=== PATIENT | female | born 1935 | race African-American/Black ===

== ENCOUNTER 2021-03-24 15:19 | Outpatient (CLI) | payer MEDICARE | END 2021-03-24 15:20 | disposition home or self-care (01) | LOC: CSHCT 15:19 | PROVIDERS: ATTEND Neurological Surgery | DX: S06.6X9D Traumatic subarachnoid hemorrhage with loss of consciousness of unspecified duration, subsequent encounter (principal) | CPT/HCPCS: 70450 ==

== ENCOUNTER 2021-10-02 17:39 | Observation (INO) | payer MEDICARE, OTHER ==
[2021-10-02 18:42] LABS: #Eosinphils 0.3 10x3/uL (0.0-0.5); #Monocytes 0.4 10x3/uL (0.0-1.1); %Basophils 0.5 % (0.0-2.0); %Eosinophils 6.2 % (0.0-6.0); Hemoglobin 10.2 g/dL (12.0-15.5); Mean Corpuscular HGB CONC 32.6 g/dL (32.0-36.0); Mean Corpuscular Volume 88.9 fl (81.6-98.3); Mean Platelet Volume 11.7 fl (7.4-10.4); Platelet Count 122 10x3/uL (150-450); RBC Distribution Width 14.3 % (11.5-14.5); Red Blood Cell (RBC) Count 3.52 10x6/uL (3.90-5.03); White Blood Cell (WBC) Count 4.2 10x3/uL (3.5-10.5)
[2021-10-02 18:44] LABS: %Neutrophils 48.3 % (40.0-75.0)
[2021-10-02 18:49] LABS: ALT (SGPT) 10 U/L (8-55); AST (SGOT) 24 U/L (5-34); Albumin 4.2 g/dL (3.4-4.8); Alkaline Phosphatase 44 U/L (40-110); Anion Gap 17 mmol/L (10-20); BUN (Urea Nitrogen) 49 mg/dL (9.8-20.1); Bilirubin, Total 0.3 mg/dL (0.2-1.2); Calc. Creatinine Clearance 0 mL/min (70-130); Calcium 8.9 mg/dL (7.8-10.44); Carbon Dioxide 25 mmol/L (23-31); Chloride 103 mmol/L (98-107); Globulin 3.1 g/dL (2.4-3.5); Glucose 131 mg/dL (83-110); Protein, Total 7.3 g/dL (5.8-8.1); Sodium 140 mmol/L (136-145)
[2021-10-02] MEDS ORDERED: hydrALAZINE 20 MG/ML VIAL ONE (18:49)
[2021-10-02 21:08] LABS: Bilirubin Neg (Negative); Blood, Urine Negative (Negative); Clarity Clear (Clear); Glucose, Urine (Dipstick) Normal (Negative); Ketone, Urine Negative (Negative); Leukocyte 100 (Negative); Nitrite Negative (Negative); Protein, Urine (Dipstick) Negative (Neg-Trace); Specific Gravity, Urine 1.015 (1.002-1.036); Urobilinogen Normal mg/dL (Less than 2)
[2021-10-02 21:18] LABS: Bacteria/HPF 4+ HPF (None Seen); RBC/HPF None Seen HPF (0-3); Squamous Epithelial 0-3 HPF (0-3)
[2021-10-02] MEDS ORDERED: cefTRIAXone\\ROCEPHIN 2 GM VIAL ONE (21:35)
[2021-10-02 22:40] LABS: SARS-CoV-2 NAA Rapid Test Not Detected (NotDetected)
[2021-10-02] MEDS ORDERED: Acetaminophen 325 MG TAB PO PRN (23:12)
[2021-10-02] MEDS ORDERED: Carvedilol 6.25 MG TAB PO SCH (23:15)
[2021-10-02] MEDS ORDERED: Rosuvastatin 10 MG TAB PO SCH (23:15)
[2021-10-02] MEDS ORDERED: Sodium Chloride 0.9% 1,000 ML IV SCH (23:15)
[2021-10-03 00:11] LABS: #Eosinphils 0.2 10x3/uL (0.0-0.5); #Monocytes 0.4 10x3/uL (0.0-1.1); %Basophils 0.4 % (0.0-2.0); %Eosinophils 4.3 % (0.0-6.0); %Monocytes 8.4 % (0.0-10.0); Anion Gap 15 mmol/L (10-20); BUN (Urea Nitrogen) 48 mg/dL (9.8-20.1); Calc. Creatinine Clearance 0 mL/min (70-130); Calcium 8.3 mg/dL (7.8-10.44); Carbon Dioxide 23 mmol/L (23-31); Chloride 107 mmol/L (98-107); Glucose 148 mg/dL (83-110); Magnesium 2.3 mg/dL (1.6-2.6); Mean Corpuscular HGB CONC 32.8 g/dL (32.0-36.0); Mean Corpuscular Hemoglobin 28.6 pg (27.0-33.0); Mean Platelet Volume 11.8 fl (7.4-10.4); Potassium 4.5 mmol/L (3.5-5.1); Red Blood Cell (RBC) Count 3.15 10x6/uL (3.90-5.03); Sodium 140 mmol/L (136-145); White Blood Cell (WBC) Count 4.7 10x3/uL (3.5-10.5)
[2021-10-03 00:26] VITALS: BMI 22.2
[2021-10-03 00:28] LABS: Platelet Count 124 10x3/uL (150-450)
[2021-10-03 04:01] LABS: #Eosinphils 0.2 10x3/uL (0.0-0.5); #Monocytes 0.6 10x3/uL (0.0-1.1); #Neutrophils 1.9 10x3/uL (1.5-8.4); %Basophils 0.5 % (0.0-2.0); %Eosinophils 5.1 % (0.0-6.0); %Lymphocytes 37.2 % (18.0-47.0); %Monocytes 12.9 % (0.0-10.0); %Neutrophils 44.1 % (40.0-75.0); Hemoglobin 8.8 g/dL (12.0-15.5); Mean Corpuscular HGB CONC 33.1 g/dL (32.0-36.0); Mean Corpuscular Hemoglobin 28.7 pg (27.0-33.0); Mean Corpuscular Volume 86.6 fl (81.6-98.3); Mean Platelet Volume 11.8 fl (7.4-10.4); Platelet Count 120 10x3/uL (150-450); RBC Distribution Width 14.1 % (11.5-14.5); Red Blood Cell (RBC) Count 3.07 10x6/uL (3.90-5.03); White Blood Cell (WBC) Count 4.4 10x3/uL (3.5-10.5)
[2021-10-03 04:05] LABS: Anion Gap 14 mmol/L (10-20); BUN (Urea Nitrogen) 47 mg/dL (9.8-20.1); Calc. Creatinine Clearance 18 mL/min (70-130); Calcium 8.4 mg/dL (7.8-10.44); Carbon Dioxide 25 mmol/L (23-31); Cardiac Risk 2.7 (Less than 4.5); Chloride 108 mmol/L (98-107); Cholesterol 170 mg/dl (< 200 Desired); Glucose 113 mg/dL (83-110); HDL Cholesterol 64 mg/dL (>60 Neg Risk); LDL Cholesterol, Calculated 96 mg/dL; Magnesium 2.2 mg/dL (1.6-2.6); Potassium 4.5 mmol/L (3.5-5.1); Sodium 142 mmol/L (136-145); Triglycerides 48 mg/dL (Less than 150)
[2021-10-03] MEDS ORDERED: Meclizine HCl 12.5 MG TAB PO PRN (08:02)
[2021-10-03] MEDS: Enoxaparin Sodium 30 MG/0.3 ML SYRINGE SC SCH ×2 (08:12→15:29)
[2021-10-03] MEDS: Carvedilol 6.25 MG TAB PO SCH ×2 (08:13→16:29)
[2021-10-03] MEDS ORDERED: Levothyroxine Sodium 88 MCG TAB PO SCH (08:15)
[2021-10-03] MEDS ORDERED: Ascorbic Acid 500 mg Chewable Tablet PO SCH (09:00)
[2021-10-03] MEDS: Amlodipine 5 MG TAB PO SCH ×2 (10:30→10:32)
[2021-10-03] MEDS ORDERED: Losartan 25 MG TAB PO SCH (16:30)
[2021-10-03 16:51] VITALS: BP 187/79; TEMP 99
[2021-10-03] MEDS ORDERED: Ferrous Sulfate 325 MG TAB PO SCH (17:00)
[2021-10-03] MEDS ORDERED: Rosuvastatin 10 MG TAB PO SCH (21:00)
[2021-10-03] MEDS ORDERED: cefTRIAXone\\ROCEPHIN 1 GM in Sodium Chloride 0.9% 100 ML IVPB SCH (22:00)
[2021-10-04] MEDS ORDERED: Levothyroxine Sodium 88 MCG TAB PO SCH (06:00)
[2021-10-04] MEDS ORDERED: Amlodipine 5 MG TAB PO SCH (09:00)
== END 2021-10-03 17:37 | disposition home health service (06) ==
LOC: CSHERS 17:39 → CSHTELE 23:21
PROVIDERS: ADMIT Family Medicine; ATTEND Family Medicine
DX: G45.9 Transient cerebral ischemic attack, unspecified (principal); I35.0 Nonrheumatic aortic (valve) stenosis; I25.10 Atherosclerotic heart disease of native coronary artery without angina pectoris; I73.9 Peripheral vascular disease, unspecified; I13.0 Hypertensive heart and chronic kidney disease with heart failure and stage 1 through stage 4 chronic kidney disease, or unspecified chronic kidney disease; N18.9 Chronic kidney disease, unspecified; Z79.899 Other long term (current) drug therapy; N39.0 Urinary tract infection, site not specified; Z86.718 Personal history of other venous thrombosis and embolism; E03.9 Hypothyroidism, unspecified; E78.5 Hyperlipidemia, unspecified; Z20.822 Contact with and (suspected) exposure to COVID-19
CPT/HCPCS: 70450; 70551; 71045; 80048 ×2; 80053; 80061; 82962; 83605; 83735 ×2; 84484; 85025 ×3; 87040; 93005; 93306; 93880; G0378 ×2; U0002; 36415; 36416; 51701; 81003; 81015; 96374; 96375; J0360; J0696; J1650; J7050

== ENCOUNTER 2021-11-09 09:43 | Emergency (ER) | payer MEDICARE ==
[2021-11-09] MEDS ORDERED: Magnesium Citrate 300 ML BOT ONE (10:45)
[2021-11-09] MEDS ORDERED: Fleet Enema 133 ML BOT PR SCH (11:00)
== END 2021-11-09 11:50 | disposition home or self-care (01) ==
LOC: CSHERS 09:43
DX: K59.00 Constipation, unspecified (principal); I10 Essential (primary) hypertension
CPT/HCPCS: 74176

== ENCOUNTER 2022-01-06 08:46 | Outpatient (CLI) | payer OTHER | END 2022-01-06 08:47 | disposition home or self-care (01) | LOC: CSHRAD 08:46 | PROVIDERS: ATTEND Internal Medicine | DX: R10.2 Pelvic and perineal pain (principal); M47.816 Spondylosis without myelopathy or radiculopathy, lumbar region; M43.16 Spondylolisthesis, lumbar region; I70.90 Unspecified atherosclerosis | CPT/HCPCS: 72100; 72170 ==

== ENCOUNTER 2022-01-22 21:06 | Inpatient (IN) | payer OTHER, MEDICARE ==
[2022-01-22 21:42] LABS: #Eosinphils 0.2 10x3/uL (0.0-0.5); #Monocytes 0.5 10x3/uL (0.0-1.1); #Neutrophils 4.1 10x3/uL (1.5-8.4); %Basophils 0.3 % (0.0-2.0); %Eosinophils 2.6 % (0.0-6.0); %Lymphocytes 28.3 % (18.0-47.0); %Neutrophils 61.6 % (40.0-75.0); Hemoglobin 11.4 g/dL (12.0-15.5); Mean Corpuscular HGB CONC 33.2 g/dL (32.0-36.0); Mean Corpuscular Hemoglobin 28.3 pg (27.0-33.0); Mean Corpuscular Volume 85.1 fl (81.6-98.3); Mean Platelet Volume 10.5 fl (7.4-10.4); Platelet Count 136 10x3/uL (150-450); RBC Distribution Width 14.5 % (11.5-14.5); Red Blood Cell (RBC) Count 4.03 10x6/uL (3.90-5.03); White Blood Cell (WBC) Count 6.6 10x3/uL (3.5-10.5)
[2022-01-22 21:57] LABS: ALT (SGPT) 12 U/L (8-55); AST (SGOT) 30 U/L (5-34); Albumin 3.2 g/dL (3.4-4.8); Alkaline Phosphatase 39 U/L (40-110); Anion Gap 17 mmol/L (10-20); BUN (Urea Nitrogen) 22 mg/dL (9.8-20.1); Bilirubin, Total 0.5 mg/dL (0.2-1.2); CK (CPK) 106 U/L (29-168); Calc. Creatinine Clearance 0 mL/min (70-130); Carbon Dioxide 21 mmol/L (23-31); Chloride 105 mmol/L (98-107); Globulin 2.8 g/dL (2.4-3.5); Glucose 118 mg/dL (83-110); Lipase 54 U/L (8-78); Magnesium 1.4 mg/dL (1.6-2.6); Sodium 140 mmol/L (136-145)
[2022-01-22 21:59] LABS: Calcium 5.9 mg/dL (7.8-10.44); Potassium 2.5 mmol/L (3.5-5.1)
[2022-01-22 22:21] LABS: CKMB 2.8 ng/mL (0-6.6)
[2022-01-22] MEDS ORDERED: Potassium Chloride 20 MEQ TAB ONE (22:24)
[2022-01-22] MEDS ORDERED: NS 0.9% w/ 40 MEQ KCL 1,000 ML IV ONE (22:24)
[2022-01-22] MEDS ORDERED: Magnesium 2 GM/50 ML BAG (IN WATER) ONE (22:24)
[2022-01-22] MEDS ORDERED: Calcium Gluc 4.6 MEQ/10 ML (100 MG/ML) ONE (22:27)
[2022-01-22] MEDS ORDERED: Calcium Gluc 4.6 MEQ/10 ML (100 MG/ML) SLOW IVP SCH (22:30)
[2022-01-22 22:43] LABS: Bilirubin Neg (Negative); Blood, Urine 10 (Negative); Clarity Clear (Clear); Glucose, Urine (Dipstick) Normal (Negative); Ketone, Urine Negative (Negative); Leukocyte 25 (Negative); Nitrite Positive (Negative); Protein, Urine (Dipstick) 30 mg/dl (Neg-Trace); Urobilinogen Normal mg/dL (Less than 2)
[2022-01-22 22:53] LABS: Bacteria/HPF 4+ HPF (None Seen); RBC/HPF 0-3 HPF (0-3); Renal Epithelial 0-3 HPF (None Seen); Squamous Epithelial 0-3 HPF (0-3)
[2022-01-22] MEDS ORDERED: Calcium Chloride 13.6 MEQ in Sodium Chloride 0.9% 100 ML IVPB SCH (23:15)
[2022-01-22] MEDS ORDERED: Morphine 4 MG/ML VIAL SLOW IVP PRN ×2 (23:16→23:24)
[2022-01-22] MEDS ORDERED: Senokot S 8.6-50 MG TAB PO PRN (23:16)
[2022-01-22] MEDS ORDERED: Morphine 2 MG/ML SYRINGE SLOW IVP PRN (23:24)
[2022-01-22] MEDS ORDERED: Ketorolac Tromethamine 30 MG/ML VIAL IVP PRN ×2 (23:24→23:26)
[2022-01-22] MEDS ORDERED: Morphine 2 MG/ML VIAL SLOW IVP PRN (23:27)
[2022-01-22] MEDS ORDERED: Pantoprazole 40 MG VIAL IVP SCH (23:30)
[2022-01-22] MEDS ORDERED: NS 0.9% w/ 20 MEQ KCL 1,000 ML/1,000 ML BAG IV SCH (23:30)
[2022-01-23] MEDS ORDERED: Calcium Chloride 1 GM/10 ML Abboject SYRINGE ONE (00:15)
[2022-01-23] MEDS ORDERED: Pantoprazole 40 MG VIAL ONE ×2 (00:18→02:00)
[2022-01-23] MEDS ORDERED: Labetalol HCl 100 MG/20 ML VIAL ONE (01:44)
[2022-01-23 02:29] LABS: Anion Gap 17 mmol/L (10-20); BUN (Urea Nitrogen) 24 mg/dL (9.8-20.1); Calc. Creatinine Clearance 0 mL/min (70-130); Calcium 8.3 mg/dL (7.8-10.44); Carbon Dioxide 27 mmol/L (23-31); Chloride 101 mmol/L (98-107); Glucose 117 mg/dL (83-110); Magnesium 2.4 mg/dL (1.6-2.6); Potassium 3.4 mmol/L (3.5-5.1); Sodium 142 mmol/L (136-145)
[2022-01-23 02:30] LABS: Troponin I 0.061 ng/mL (< 0.028)
[2022-01-23] MEDS ORDERED: Potassium Chloride 20 MEQ/100 ML PREMIX BAG ONE ×2 (04:00→05:57)
[2022-01-23] MEDS: Potassium Chloride 20 MEQ in Premix Bag 1 BAG IVPB SCH ×2 (04:01→06:00)
[2022-01-23] MEDS: Levothyroxine Sodium 88 MCG TAB PO SCH (06:00)
[2022-01-23 06:41] LABS: #Eosinphils 0.2 10x3/uL (0.0-0.5); #Monocytes 0.5 10x3/uL (0.0-1.1); #Neutrophils 2.8 10x3/uL (1.5-8.4); %Basophils 0.6 % (0.0-2.0); %Eosinophils 3.2 % (0.0-6.0); %Lymphocytes 33.2 % (18.0-47.0); %Monocytes 9.8 % (0.0-10.0); Hemoglobin 10.9 g/dL (12.0-15.5); Mean Corpuscular HGB CONC 33.7 g/dL (32.0-36.0); Mean Corpuscular Hemoglobin 28.4 pg (27.0-33.0); Mean Corpuscular Volume 84.1 fl (81.6-98.3); Mean Platelet Volume 11.3 fl (7.4-10.4); Platelet Count 136 10x3/uL (150-450); RBC Distribution Width 14.4 % (11.5-14.5); Red Blood Cell (RBC) Count 3.84 10x6/uL (3.90-5.03); White Blood Cell (WBC) Count 5.3 10x3/uL (3.5-10.5)
[2022-01-23] MEDS ORDERED: Sodium Chloride 0.9% 1,000 ML IV SCH (06:45)
[2022-01-23] MEDS: Carvedilol 6.25 MG TAB PO SCH ×2 (08:24→20:03)
[2022-01-23 08:38] LABS: Phosphorus 3.7 mg/dL (2.3-4.7)
[2022-01-23] MEDS ORDERED: Enoxaparin Sodium 40 MG/0.4 ML SYRINGE ONE (08:55)
[2022-01-23] MEDS ORDERED: Losartan 25 MG TAB ONE (08:56)
[2022-01-23] MEDS ORDERED: Enoxaparin Sodium 40 MG/0.4 ML SYRINGE SC SCH (09:00)
[2022-01-23] MEDS: Polyethylene Glycol 3350 17 GM Packet PO SCH (09:02)
[2022-01-23] MEDS: Losartan 25 MG TAB PO SCH (09:02)
[2022-01-23 09:09] LABS: Anion Gap 17 mmol/L (10-20); BUN (Urea Nitrogen) 22 mg/dL (9.8-20.1); Calc. Creatinine Clearance 0 mL/min (70-130); Calcium 7.7 mg/dL (7.8-10.44); Carbon Dioxide 27 mmol/L (23-31); Chloride 103 mmol/L (98-107); Glucose 89 mg/dL (83-110); Magnesium 2.2 mg/dL (1.6-2.6); Potassium 4.5 mmol/L (3.5-5.1); Sodium 142 mmol/L (136-145)
[2022-01-23 09:14] LABS: Troponin I 0.062 ng/mL (< 0.028)
[2022-01-23] MEDS ORDERED: Acetaminophen 325 MG TAB PO PRN (16:08)
[2022-01-23] MEDS ORDERED: Morphine 2 MG/ML VIAL SLOW IVP PRN (16:08)
[2022-01-23] MEDS ORDERED: Diclofenac 1% 100 GM GEL TP SCH (16:30)
[2022-01-23] MEDS ORDERED: hydrALAZINE 20 MG/ML VIAL SLOW IVP PRN (19:36)
[2022-01-23] MEDS ORDERED: Labetalol HCl 100 MG/20 ML VIAL SLOW IVP PRN (19:36)
[2022-01-23] MEDS: cefTRIAXone\\ROCEPHIN 1 GM in Sodium Chloride 0.9% 100 ML IVPB SCH (20:03)
[2022-01-23] MEDS: Sodium Chloride 0.9% 1,000 ML IV SCH (20:10)
[2022-01-23] MEDS: Rosuvastatin 20 MG TAB PO SCH (21:32)
[2022-01-23] MEDS: Pantoprazole 40 MG VIAL IVP SCH (21:33)
[2022-01-23] MEDS: Diclofenac 1% 100 GM GEL TP SCH (22:59)
[2022-01-24 06:04] LABS: #Eosinphils 0.2 10x3/uL (0.0-0.5); #Monocytes 0.6 10x3/uL (0.0-1.1); #Neutrophils 2.1 10x3/uL (1.5-8.4); %Basophils 0.2 % (0.0-2.0); %Eosinophils 3.9 % (0.0-6.0); %Lymphocytes 40.7 % (18.0-47.0); %Monocytes 11.4 % (0.0-10.0); %Neutrophils 43.2 % (40.0-75.0); Mean Corpuscular HGB CONC 33.6 g/dL (32.0-36.0); Mean Corpuscular Hemoglobin 28.3 pg (27.0-33.0); Mean Corpuscular Volume 84.4 fl (81.6-98.3); Mean Platelet Volume 11.4 fl (7.4-10.4); Platelet Count 126 10x3/uL (150-450); RBC Distribution Width 14.7 % (11.5-14.5); Red Blood Cell (RBC) Count 3.53 10x6/uL (3.90-5.03); White Blood Cell (WBC) Count 4.8 10x3/uL (3.5-10.5)
[2022-01-24 06:10] LABS: Anion Gap 16 mmol/L (10-20); BUN (Urea Nitrogen) 20 mg/dL (9.8-20.1); Calc. Creatinine Clearance 21 mL/min (70-130); Calcium 7.1 mg/dL (7.8-10.44); Carbon Dioxide 27 mmol/L (23-31); Cardiac Risk 3.3 (Less than 4.5); Chloride 104 mmol/L (98-107); Cholesterol 156 mg/dl (< 200 Desired); Glucose 91 mg/dL (83-110); HDL Cholesterol 47 mg/dL (>60 Neg Risk); LDL Cholesterol, Calculated 93 mg/dL; Sodium 143 mmol/L (136-145); Triglycerides 78 mg/dL (Less than 150)
[2022-01-24] MEDS: Levothyroxine Sodium 88 MCG TAB PO SCH (06:13)
[2022-01-24] MEDS: Aspirin 81 mg Enteric Coated Tablet PO SCH (08:34)
[2022-01-24] MEDS: Carvedilol 6.25 MG TAB PO SCH ×2 (08:34→16:27)
[2022-01-24] MEDS: Polyethylene Glycol 3350 17 GM Packet PO SCH (08:34)
[2022-01-24] MEDS: Losartan 25 MG TAB PO SCH (08:34)
[2022-01-24] MEDS: Diclofenac 1% 100 GM GEL TP SCH ×5 (08:35→20:57)
[2022-01-24] MEDS: NIFEdipine XL 90 MG TAB PO SCH (08:59)
[2022-01-24] MEDS ORDERED: Enoxaparin Sodium 30 MG/0.3 ML SYRINGE SC SCH (09:00)
[2022-01-24] MEDS ORDERED: Ondansetron PF 4 MG/2 ML Vial IVP PRN (11:52)
[2022-01-24 13:11] LABS: Hemoglobin A1c 5.5 % (4.0-6.0)
[2022-01-24] MEDS: Calcium Carbonate 500 MG ChewTAB PO SCH (16:27)
[2022-01-24] MEDS: cefTRIAXone\\ROCEPHIN 1 GM in Sodium Chloride 0.9% 100 ML IVPB SCH (16:27)
[2022-01-24] MEDS: Sodium Chloride 0.9% 1,000 ML IV SCH (16:48)
[2022-01-24] MEDS ORDERED: Pantoprazole 40 MG VIAL ONE (20:26)
[2022-01-24] MEDS: Pantoprazole 40 MG VIAL IVP SCH (20:45)
[2022-01-24] MEDS: Rosuvastatin 20 MG TAB PO SCH (20:45)
[2022-01-25 04:47] LABS: Anion Gap 18 mmol/L (10-20); BUN (Urea Nitrogen) 22 mg/dL (9.8-20.1); Calc. Creatinine Clearance 26 mL/min (70-130); Carbon Dioxide 24 mmol/L (23-31); Chloride 104 mmol/L (98-107); Glucose 100 mg/dL (83-110); Sodium 142 mmol/L (136-145)
[2022-01-25 04:50] LABS: #Eosinphils 0.2 10x3/uL (0.0-0.5); #Monocytes 0.5 10x3/uL (0.0-1.1); #Neutrophils 3.6 10x3/uL (1.5-8.4); %Basophils 0.2 % (0.0-2.0); %Eosinophils 2.7 % (0.0-6.0); %Lymphocytes 23.2 % (18.0-47.0); %Monocytes 8.6 % (0.0-10.0); %Neutrophils 65.1 % (40.0-75.0); Hemoglobin 9.7 g/dL (12.0-15.5); Mean Corpuscular HGB CONC 33.8 g/dL (32.0-36.0); Mean Corpuscular Hemoglobin 28.6 pg (27.0-33.0); Mean Corpuscular Volume 84.7 fl (81.6-98.3); Mean Platelet Volume 11.9 fl (7.4-10.4); Platelet Count 139 10x3/uL (150-450); RBC Distribution Width 14.6 % (11.5-14.5); Red Blood Cell (RBC) Count 3.39 10x6/uL (3.90-5.03); White Blood Cell (WBC) Count 5.6 10x3/uL (3.5-10.5)
[2022-01-25] MEDS: Calcium Carbonate 500 MG ChewTAB PO SCH ×2 (06:19→16:46)
[2022-01-25] MEDS: Levothyroxine Sodium 88 MCG TAB PO SCH (06:19)
[2022-01-25] MEDS: Polyethylene Glycol 3350 17 GM Packet PO SCH (09:35)
[2022-01-25] MEDS: Diclofenac 1% 100 GM GEL TP SCH ×4 (09:37→21:00)
[2022-01-25] MEDS: Carvedilol 6.25 MG TAB PO SCH ×2 (09:37→18:28)
[2022-01-25] MEDS: Losartan 25 MG TAB PO SCH (09:37)
[2022-01-25] MEDS: NIFEdipine XL 90 MG TAB PO SCH (09:37)
[2022-01-25] MEDS: Aspirin 81 mg Enteric Coated Tablet PO SCH (09:37)
[2022-01-25] MEDS: cefTRIAXone\\ROCEPHIN 1 GM in Sodium Chloride 0.9% 100 ML IVPB SCH (16:24)
[2022-01-25] MEDS: Pantoprazole 40 MG VIAL IVP SCH (20:26)
[2022-01-25] MEDS: Rosuvastatin 20 MG TAB PO SCH (20:27)
[2022-01-25] MEDS: levETIRAcetam 500 MG/5 ML VIAL SLOW IVP SCH (20:27)
[2022-01-26] MEDS: Acetaminophen 325 MG TAB PO PRN ×2 (00:48→09:33)
[2022-01-26 04:33] LABS: #Eosinphils 0.2 10x3/uL (0.0-0.5); #Monocytes 0.5 10x3/uL (0.0-1.1); #Neutrophils 2.5 10x3/uL (1.5-8.4); %Basophils 0.2 % (0.0-2.0); %Eosinophils 4.3 % (0.0-6.0); %Lymphocytes 33.6 % (18.0-47.0); %Monocytes 10.5 % (0.0-10.0); %Neutrophils 51.4 % (40.0-75.0); Hemoglobin 9.2 g/dL (12.0-15.5); Mean Corpuscular HGB CONC 34.5 g/dL (32.0-36.0); Mean Corpuscular Hemoglobin 29.2 pg (27.0-33.0); Mean Corpuscular Volume 84.8 fl (81.6-98.3); Mean Platelet Volume 11.8 fl (7.4-10.4); Platelet Count 124 10x3/uL (150-450); RBC Distribution Width 14.6 % (11.5-14.5); Red Blood Cell (RBC) Count 3.15 10x6/uL (3.90-5.03); White Blood Cell (WBC) Count 4.9 10x3/uL (3.5-10.5)
[2022-01-26 04:53] LABS: Anion Gap 14 mmol/L (10-20); BUN (Urea Nitrogen) 26 mg/dL (9.8-20.1); Calc. Creatinine Clearance 25 mL/min (70-130); Calcium 6.9 mg/dL (7.8-10.44); Carbon Dioxide 26 mmol/L (23-31); Chloride 104 mmol/L (98-107); Glucose 103 mg/dL (83-110); Potassium 4.4 mmol/L (3.5-5.1); Sodium 140 mmol/L (136-145)
[2022-01-26] MEDS: Levothyroxine Sodium 88 MCG TAB PO SCH (06:20)
[2022-01-26] MEDS: Calcium Carbonate 500 MG ChewTAB PO SCH ×2 (07:36→16:56)
[2022-01-26] MEDS: Diclofenac 1% 100 GM GEL TP SCH ×4 (09:32→21:24)
[2022-01-26] MEDS: Polyethylene Glycol 3350 17 GM Packet PO SCH (09:33)
[2022-01-26] MEDS: Aspirin 81 mg Enteric Coated Tablet PO SCH (09:34)
[2022-01-26] MEDS: Losartan 25 MG TAB PO SCH (09:34)
[2022-01-26] MEDS: NIFEdipine XL 90 MG TAB PO SCH (09:34)
[2022-01-26] MEDS: levETIRAcetam 500 MG/5 ML VIAL SLOW IVP SCH ×2 (09:35→21:24)
[2022-01-26] MEDS: Carvedilol 6.25 MG TAB PO SCH ×2 (09:35→16:56)
[2022-01-26] MEDS: cefTRIAXone\\ROCEPHIN 1 GM in Sodium Chloride 0.9% 100 ML IVPB SCH (16:56)
[2022-01-26] MEDS: Pantoprazole 40 MG VIAL IVP SCH (21:24)
[2022-01-26] MEDS: Rosuvastatin 20 MG TAB PO SCH (21:24)
[2022-01-27 04:48] LABS: #Eosinphils 0.2 10x3/uL (0.0-0.5); #Monocytes 0.6 10x3/uL (0.0-1.1); %Basophils 0.4 % (0.0-2.0); %Lymphocytes 32.3 % (18.0-47.0); %Monocytes 11.1 % (0.0-10.0); Hemoglobin 9.2 g/dL (12.0-15.5); Mean Corpuscular HGB CONC 33.8 g/dL (32.0-36.0); Mean Corpuscular Hemoglobin 28.8 pg (27.0-33.0); Mean Platelet Volume 11.9 fl (7.4-10.4); Platelet Count 143 10x3/uL (150-450); RBC Distribution Width 14.8 % (11.5-14.5); White Blood Cell (WBC) Count 5.1 10x3/uL (3.5-10.5)
[2022-01-27 04:49] LABS: #Neutrophils 2.6 10x3/uL (1.5-8.4); %Neutrophils 52.2 % (40.0-75.0)
[2022-01-27 05:07] LABS: Anion Gap 13 mmol/L (10-20); BUN (Urea Nitrogen) 22 mg/dL (9.8-20.1); Calc. Creatinine Clearance 28 mL/min (70-130); Calcium 7.4 mg/dL (7.8-10.44); Carbon Dioxide 29 mmol/L (23-31); Chloride 104 mmol/L (98-107); Glucose 92 mg/dL (83-110); Potassium 4.9 mmol/L (3.5-5.1); Sodium 141 mmol/L (136-145)
[2022-01-27] MEDS: Levothyroxine Sodium 88 MCG TAB PO SCH (06:39)
[2022-01-27] MEDS: Calcium Carbonate 500 MG ChewTAB PO SCH ×3 (06:39→16:53)
[2022-01-27] MEDS: Losartan 25 MG TAB PO SCH (09:13)
[2022-01-27] MEDS: Carvedilol 6.25 MG TAB PO SCH ×2 (09:13→16:53)
[2022-01-27] MEDS: NIFEdipine XL 90 MG TAB PO SCH (09:13)
[2022-01-27] MEDS: Aspirin 81 mg Enteric Coated Tablet PO SCH (09:13)
[2022-01-27] MEDS: levETIRAcetam 500 MG/5 ML VIAL SLOW IVP SCH ×2 (09:14→21:49)
[2022-01-27] MEDS: Polyethylene Glycol 3350 17 GM Packet PO SCH (09:14)
[2022-01-27] MEDS: cefTRIAXone\\ROCEPHIN 1 GM in Sodium Chloride 0.9% 100 ML IVPB SCH (16:54)
[2022-01-27] MEDS: Diclofenac 1% 100 GM GEL TP SCH ×3 (21:46→21:50)
[2022-01-27] MEDS: Rosuvastatin 20 MG TAB PO SCH (21:48)
[2022-01-27] MEDS: Pantoprazole 40 MG VIAL IVP SCH (21:48)
[2022-01-28] MEDS: Levothyroxine Sodium 88 MCG TAB PO SCH (05:10)
[2022-01-28 05:21] LABS: #Eosinphils 0.2 10x3/uL (0.0-0.5); #Monocytes 0.6 10x3/uL (0.0-1.1); #Neutrophils 2.4 10x3/uL (1.5-8.4); %Basophils 0.4 % (0.0-2.0); %Lymphocytes 31.7 % (18.0-47.0); %Monocytes 13.3 % (0.0-10.0); %Neutrophils 50.4 % (40.0-75.0); Mean Corpuscular HGB CONC 34.2 g/dL (32.0-36.0); Mean Corpuscular Hemoglobin 28.8 pg (27.0-33.0); Mean Corpuscular Volume 84.3 fl (81.6-98.3); Mean Platelet Volume 11.4 fl (7.4-10.4); Platelet Count 143 10x3/uL (150-450); RBC Distribution Width 14.7 % (11.5-14.5); Red Blood Cell (RBC) Count 3.12 10x6/uL (3.90-5.03); White Blood Cell (WBC) Count 4.7 10x3/uL (3.5-10.5)
[2022-01-28 05:39] LABS: Anion Gap 14 mmol/L (10-20); BUN (Urea Nitrogen) 27 mg/dL (9.8-20.1); Calc. Creatinine Clearance 29 mL/min (70-130); Calcium 7.4 mg/dL (7.8-10.44); Carbon Dioxide 28 mmol/L (23-31); Chloride 104 mmol/L (98-107); Estimated GFR 43; Glucose 88 mg/dL (83-110); Potassium 4.7 mmol/L (3.5-5.1); Sodium 141 mmol/L (136-145)
[2022-01-28] MEDS: Carvedilol 6.25 MG TAB PO SCH ×2 (09:36→16:47)
[2022-01-28] MEDS: Aspirin 81 mg Enteric Coated Tablet PO SCH (09:36)
[2022-01-28] MEDS: NIFEdipine XL 90 MG TAB PO SCH (09:36)
[2022-01-28] MEDS: Calcium Carbonate 500 MG ChewTAB PO SCH ×2 (09:36→16:47)
[2022-01-28] MEDS: Losartan 25 MG TAB PO SCH (09:36)
[2022-01-28] MEDS: levETIRAcetam 500 MG/5 ML VIAL SLOW IVP SCH ×2 (09:37→20:29)
[2022-01-28] MEDS: Polyethylene Glycol 3350 17 GM Packet PO SCH (09:37)
[2022-01-28] MEDS: Diclofenac 1% 100 GM GEL TP SCH ×2 (10:04→20:28)
[2022-01-28] MEDS: cefTRIAXone\\ROCEPHIN 1 GM in Sodium Chloride 0.9% 100 ML IVPB SCH (16:47)
[2022-01-28] MEDS: Pantoprazole 40 MG VIAL IVP SCH (20:29)
[2022-01-28] MEDS: Rosuvastatin 20 MG TAB PO SCH (20:31)
[2022-01-28] MEDS: Acetaminophen 325 MG TAB PO PRN (21:38)
[2022-01-29 05:50] LABS: #Eosinphils 0.2 10x3/uL (0.0-0.5); #Monocytes 0.4 10x3/uL (0.0-1.1); #Neutrophils 1.4 10x3/uL (1.5-8.4); %Basophils 0.5 % (0.0-2.0); %Eosinophils 5.9 % (0.0-6.0); %Lymphocytes 43.3 % (18.0-47.0); %Monocytes 11.5 % (0.0-10.0); %Neutrophils 38.5 % (40.0-75.0); Hemoglobin 8.3 g/dL (12.0-15.5); Mean Corpuscular HGB CONC 33.3 g/dL (32.0-36.0); Mean Corpuscular Hemoglobin 28.6 pg (27.0-33.0); Mean Corpuscular Volume 85.9 fl (81.6-98.3); Platelet Count 161 10x3/uL (150-450); RBC Distribution Width 14.8 % (11.5-14.5); White Blood Cell (WBC) Count 3.7 10x3/uL (3.5-10.5)
[2022-01-29] MEDS: Levothyroxine Sodium 88 MCG TAB PO SCH (06:00)
[2022-01-29 06:04] LABS: Anion Gap 12 mmol/L (10-20); BUN (Urea Nitrogen) 27 mg/dL (9.8-20.1); Calc. Creatinine Clearance 30 mL/min (70-130); Calcium 7.2 mg/dL (7.8-10.44); Carbon Dioxide 28 mmol/L (23-31); Chloride 104 mmol/L (98-107); Estimated GFR 44; Glucose 91 mg/dL (83-110); Potassium 4.8 mmol/L (3.5-5.1); Sodium 139 mmol/L (136-145)
[2022-01-29] MEDS: Polyethylene Glycol 3350 17 GM Packet PO SCH (08:58)
[2022-01-29] MEDS: Losartan 25 MG TAB PO SCH (08:58)
[2022-01-29] MEDS: NIFEdipine XL 90 MG TAB PO SCH (08:59)
[2022-01-29] MEDS: Aspirin 81 mg Enteric Coated Tablet PO SCH (08:59)
[2022-01-29] MEDS: Calcium Carbonate 500 MG ChewTAB PO SCH (08:59)
[2022-01-29] MEDS: levETIRAcetam 500 MG/5 ML VIAL SLOW IVP SCH (08:59)
[2022-01-29] MEDS: Carvedilol 6.25 MG TAB PO SCH (08:59)
[2022-01-29] MEDS: Diclofenac 1% 100 GM GEL TP SCH (09:21)
[2022-01-29 11:59] VITALS: BP 145/67; TEMP 98.9
== END 2022-01-29 12:45 | DRG 683 ==
LOC: CSHERS 21:06 → CSHERHOLD 23:56 → CSHTELE 01-23 07:54
PROVIDERS: ADMIT Family Medicine; ATTEND Internal Medicine
DX: N17.9 Acute kidney failure, unspecified (principal); I69.354 Hemiplegia and hemiparesis following cerebral infarction affecting left non-dominant side; R64 Cachexia; Z68.1 Body mass index [BMI] 19.9 or less, adult; E44.0 Moderate protein-calorie malnutrition; E87.6 Hypokalemia; M54.50 Low back pain, unspecified; Z20.822 Contact with and (suspected) exposure to COVID-19; E86.0 Dehydration; M19.90 Unspecified osteoarthritis, unspecified site; G89.29 Other chronic pain; G25.2 Other specified forms of tremor; E83.51 Hypocalcemia; E83.42 Hypomagnesemia; R11.2 Nausea with vomiting, unspecified; N18.32 Chronic kidney disease, stage 3b; M48.02 Spinal stenosis, cervical region; I12.9 Hypertensive chronic kidney disease with stage 1 through stage 4 chronic kidney disease, or unspecified chronic kidney disease; I35.0 Nonrheumatic aortic (valve) stenosis; I25.10 Atherosclerotic heart disease of native coronary artery without angina pectoris; D63.1 Anemia in chronic kidney disease; J45.909 Unspecified asthma, uncomplicated; F41.9 Anxiety disorder, unspecified; F32.A Depression, unspecified; I34.0 Nonrheumatic mitral (valve) insufficiency; E88.09 Other disorders of plasma-protein metabolism, not elsewhere classified; E03.9 Hypothyroidism, unspecified; I73.9 Peripheral vascular disease, unspecified; Z91.041 Radiographic dye allergy status; Z88.0 Allergy status to penicillin; Z88.8 Allergy status to other drugs, medicaments and biological substances; Z79.890 Hormone replacement therapy; Z79.899 Other long term (current) drug therapy; Z95.5 Presence of coronary angioplasty implant and graft; Z90.710 Acquired absence of both cervix and uterus; Z82.3 Family history of stroke
CPT/HCPCS: 36415; 36416; 51701; 70450; 70551; 72125; 72141; 80048; 80053; 80061; 81003; 81015; 82306; 82550; 82553; 83036; 83690; 83735; 83970; 84100; 84439; 84443; 84481; 84484; 85025; 87086; 93005; 93010; 93306; 96361; 96365; 96366; 96368; 96375; C9113; J0610; J0696; J1650; J1953; J2405; J3475; J3480; J3490; J7050; U0003; U0005

== ENCOUNTER 2022-03-18 13:20 | Emergency (ER) | payer MEDICARE, OTHER ==
[2022-03-18] MEDS ORDERED: Dexamethasone 10 MG/ML VIAL ONE (15:20)
[2022-03-18 15:51] LABS: #Eosinphils 0.2 10x3/uL (0.0-0.5); #Monocytes 0.5 10x3/uL (0.0-1.1); #Neutrophils 4.3 10x3/uL (1.5-8.4); %Basophils 0.3 % (0.0-2.0); %Eosinophils 3.5 % (0.0-6.0); %Lymphocytes 19.9 % (18.0-47.0); %Monocytes 7.7 % (0.0-10.0); %Neutrophils 68.4 % (40.0-75.0); Hemoglobin 11.2 g/dL (12.0-15.5); Mean Corpuscular HGB CONC 33.8 g/dL (32.0-36.0); Mean Corpuscular Hemoglobin 28.4 pg (27.0-33.0); Mean Corpuscular Volume 83.8 fl (81.6-98.3); Mean Platelet Volume 10.5 fl (7.4-10.4); Platelet Count 220 10x3/uL (150-450); RBC Distribution Width 15.2 % (11.5-14.5); Red Blood Cell (RBC) Count 3.95 10x6/uL (3.90-5.03); White Blood Cell (WBC) Count 6.2 10x3/uL (3.5-10.5)
[2022-03-18 16:04] LABS: ALT (SGPT) 13 U/L (8-55); AST (SGOT) 30 U/L (5-34); Albumin 4.2 g/dL (3.4-4.8); Alkaline Phosphatase 49 U/L (40-110); Anion Gap 18 mmol/L (10-20); BUN (Urea Nitrogen) 26 mg/dL (9.8-20.1); Bilirubin, Total 0.6 mg/dL (0.2-1.2); Calc. Creatinine Clearance 0 mL/min (70-130); Calcium 7.3 mg/dL (7.8-10.44); Carbon Dioxide 30 mmol/L (23-31); Chloride 96 mmol/L (98-107); Estimated GFR 32; Globulin 3.5 g/dL (2.4-3.5); Glucose 105 mg/dL (83-110); Potassium 3.1 mmol/L (3.5-5.1); Protein, Total 7.7 g/dL (5.8-8.1); Sodium 141 mmol/L (136-145)
== END 2022-03-18 16:54 | disposition home or self-care (01) ==
LOC: CSHERS 13:20
DX: M47.819 Spondylosis without myelopathy or radiculopathy, site unspecified (principal); R63.0 Anorexia; E03.9 Hypothyroidism, unspecified; E78.5 Hyperlipidemia, unspecified; I10 Essential (primary) hypertension; Z79.899 Other long term (current) drug therapy
CPT/HCPCS: 80053; 85025; 96361; 96374; J1100

== ENCOUNTER 2022-03-27 08:46 | Inpatient (IN) | payer OTHER ==
[2022-03-27 09:27] LABS: #Eosinphils 0.1 10x3/uL (0.0-0.5); #Monocytes 0.7 10x3/uL (0.0-1.1); #Neutrophils 4.7 10x3/uL (1.5-8.4); %Basophils 0.3 % (0.0-2.0); %Eosinophils 1.5 % (0.0-6.0); %Lymphocytes 34.7 % (18.0-47.0); %Monocytes 8.6 % (0.0-10.0); %Neutrophils 54.7 % (40.0-75.0); Hemoglobin 14.3 g/dL (12.0-15.5); Mean Corpuscular HGB CONC 33.8 g/dL (32.0-36.0); Mean Corpuscular Hemoglobin 27.8 pg (27.0-33.0); Mean Corpuscular Volume 82.3 fl (81.6-98.3); Mean Platelet Volume 11.8 fl (7.4-10.4); Platelet Count 199 10x3/uL (150-450); RBC Distribution Width 15.4 % (11.5-14.5); Red Blood Cell (RBC) Count 5.14 10x6/uL (3.90-5.03); White Blood Cell (WBC) Count 8.6 10x3/uL (3.5-10.5)
[2022-03-27 09:49] LABS: ALT (SGPT) 24 U/L (8-55); AST (SGOT) 49 U/L (5-34); Alkaline Phosphatase 58 U/L (40-110); Anion Gap 21 mmol/L (10-20); BUN (Urea Nitrogen) 38 mg/dL (9.8-20.1); Bilirubin, Total 0.8 mg/dL (0.2-1.2); Calc. Creatinine Clearance 0 mL/min (70-130); Calcium 7.1 mg/dL (7.8-10.44); Carbon Dioxide 29 mmol/L (23-31); Chloride 94 mmol/L (98-107); Estimated GFR 22; Globulin 3.1 g/dL (2.4-3.5); Glucose 103 mg/dL (83-110); Potassium 3.2 mmol/L (3.5-5.1); Protein, Total 7.1 g/dL (5.8-8.1); Sodium 141 mmol/L (136-145)
[2022-03-27 10:26] LABS: CKMB 14.9 ng/mL (0-6.6)
[2022-03-27] MEDS ORDERED: Aspirin Chewable 81 MG TAB ONE (10:55)
[2022-03-27 12:06] LABS: Magnesium 1.8 mg/dL (1.6-2.6)
[2022-03-27] MEDS ORDERED: Potassium Chloride 20 MEQ TAB PO SCH (12:30)
[2022-03-27 12:35] LABS: SARS-CoV-2 NAA Rapid Test Not Detected (NotDetected)
[2022-03-27 14:05] VITALS: BMI 20.5
[2022-03-27] MEDS: Lactated Ringer's 1,000 ML IV SCH (14:49)
[2022-03-27] MEDS: Acetaminophen/Codeine 30-300mg Tablet PO PRN (22:50)
[2022-03-28] MEDS: Lactated Ringer's 1,000 ML IV SCH ×2 (03:20→17:14)
[2022-03-28 06:07] LABS: Anion Gap 15 mmol/L (10-20); BUN (Urea Nitrogen) 34 mg/dL (9.8-20.1); Calc. Creatinine Clearance 19 mL/min (70-130); Calcium 6.3 mg/dL (7.8-10.44); Carbon Dioxide 29 mmol/L (23-31); Chloride 100 mmol/L (98-107); Estimated GFR 29; Glucose 89 mg/dL (83-110); Sodium 141 mmol/L (136-145)
[2022-03-28 06:37] LABS: #Eosinphils 0.2 10x3/uL (0.0-0.5); #Monocytes 0.5 10x3/uL (0.0-1.1); #Neutrophils 2.7 10x3/uL (1.5-8.4); %Basophils 0.3 % (0.0-2.0); %Eosinophils 2.3 % (0.0-6.0); %Lymphocytes 47.5 % (18.0-47.0); %Neutrophils 41.6 % (40.0-75.0); Hemoglobin 12.2 g/dL (12.0-15.5); Mean Corpuscular HGB CONC 33.9 g/dL (32.0-36.0); Mean Corpuscular Volume 82.8 fl (81.6-98.3); Mean Platelet Volume 11.8 fl (7.4-10.4); Platelet Count 169 10x3/uL (150-450); RBC Distribution Width 15.2 % (11.5-14.5); Red Blood Cell (RBC) Count 4.35 10x6/uL (3.90-5.03); White Blood Cell (WBC) Count 6.5 10x3/uL (3.5-10.5)
[2022-03-28 06:51] LABS: Potassium 2.9 mmol/L (3.5-5.1)
[2022-03-28] MEDS: Potassium Chloride 20 MEQ TAB PO SCH ×2 (08:25→17:15)
[2022-03-28] MEDS: Acetaminophen/Codeine 30-300mg Tablet PO PRN (08:25)
[2022-03-28 09:16] LABS: Magnesium 1.6 mg/dL (1.6-2.6)
[2022-03-28] MEDS: Senokot S 8.6-50 MG TAB PO SCH ×2 (11:58→23:19)
[2022-03-28] MEDS: Magnesium 2 GM/50 ML(in water) 2 GM in Premix Bag 1 BAG IVPB SCH ×2 (11:58→13:45)
[2022-03-28] MEDS: Polyethylene Glycol 3350 17 GM Packet PO SCH (11:58)
[2022-03-28] MEDS ORDERED: Magnesium 2 GM/50 ML(in water) 2 GM in Premix Bag 1 BAG IVPB SCH (13:45)
[2022-03-28 20:18] LABS: Anion Gap 14 mmol/L (10-20); BUN (Urea Nitrogen) 27 mg/dL (9.8-20.1); Calc. Creatinine Clearance 20 mL/min (70-130); Calcium 6.4 mg/dL (7.8-10.44); Carbon Dioxide 30 mmol/L (23-31); Chloride 102 mmol/L (98-107); Estimated GFR 31; Glucose 152 mg/dL (83-110); Potassium 3.5 mmol/L (3.5-5.1); Sodium 142 mmol/L (136-145)
[2022-03-29] MEDS: Senokot S 8.6-50 MG TAB PO SCH ×3 (00:19→20:48)
[2022-03-29] MEDS: Lactated Ringer's 1,000 ML IV SCH ×2 (04:29→16:14)
[2022-03-29] MEDS: Acetaminophen/Codeine 30-300mg Tablet PO PRN (04:34)
[2022-03-29 05:54] LABS: Anion Gap 13 mmol/L (10-20); BUN (Urea Nitrogen) 26 mg/dL (9.8-20.1); Calc. Creatinine Clearance 23 mL/min (70-130); Calcium 6.4 mg/dL (7.8-10.44); Carbon Dioxide 29 mmol/L (23-31); Chloride 103 mmol/L (98-107); Estimated GFR 36; Glucose 80 mg/dL (83-110); Magnesium 2.5 mg/dL (1.6-2.6); Potassium 4.8 mmol/L (3.5-5.1); Sodium 140 mmol/L (136-145)
[2022-03-29 05:59] LABS: #Eosinphils 0.1 10x3/uL (0.0-0.5); #Monocytes 0.6 10x3/uL (0.0-1.1); #Neutrophils 3.1 10x3/uL (1.5-8.4); %Basophils 0.2 % (0.0-2.0); %Lymphocytes 36.1 % (18.0-47.0); %Neutrophils 51.4 % (40.0-75.0); Hemoglobin 9.8 g/dL (12.0-15.5); Mean Corpuscular HGB CONC 34.5 g/dL (32.0-36.0); Mean Corpuscular Hemoglobin 28.7 pg (27.0-33.0); Mean Platelet Volume 11.2 fl (7.4-10.4); Platelet Count 115 10x3/uL (150-450); RBC Distribution Width 15.8 % (11.5-14.5); Red Blood Cell (RBC) Count 3.42 10x6/uL (3.90-5.03); White Blood Cell (WBC) Count 6.1 10x3/uL (3.5-10.5)
[2022-03-29 06:48] LABS: Platelet Morphology Comment Appears Decreased; RBC Morphology Normal
[2022-03-29] MEDS: Levothyroxine Sodium 88 MCG TAB PO SCH (10:40)
[2022-03-29] MEDS: Carvedilol 6.25 MG TAB PO SCH ×2 (10:43→16:14)
[2022-03-29] MEDS: levETIRAcetam 500 MG TAB PO SCH ×2 (10:44→20:48)
[2022-03-29] MEDS: Potassium Chloride 20 MEQ TAB PO SCH ×2 (10:44→16:14)
[2022-03-29] MEDS: Polyethylene Glycol 3350 17 GM Packet PO SCH (10:45)
[2022-03-29] MEDS: NIFEdipine XL 30 MG TAB PO SCH (10:45)
[2022-03-29] MEDS: Calcium Carbonate 500 MG TAB PO SCH (16:14)
[2022-03-29] MEDS ORDERED: Bisacodyl 10 MG SUPP PR SCH (22:30)
[2022-03-30] MEDS: Lactated Ringer's 1,000 ML IV SCH (05:20)
[2022-03-30 05:48] LABS: #Eosinphils 0.2 10x3/uL (0.0-0.5); #Neutrophils 3.9 10x3/uL (1.5-8.4); %Basophils 0.3 % (0.0-2.0); %Eosinophils 2.5 % (0.0-6.0); %Lymphocytes 29.5 % (18.0-47.0); %Monocytes 14.3 % (0.0-10.0); %Neutrophils 53.1 % (40.0-75.0); Hemoglobin 9.7 g/dL (12.0-15.5); Mean Corpuscular HGB CONC 34.9 g/dL (32.0-36.0); Mean Corpuscular Hemoglobin 29.1 pg (27.0-33.0); Mean Corpuscular Volume 83.5 fl (81.6-98.3); Platelet Count 95 10x3/uL (150-450); RBC Distribution Width 16.3 % (11.5-14.5); Red Blood Cell (RBC) Count 3.33 10x6/uL (3.90-5.03); White Blood Cell (WBC) Count 7.3 10x3/uL (3.5-10.5)
[2022-03-30 05:59] LABS: Anion Gap 11 mmol/L (10-20); BUN (Urea Nitrogen) 16 mg/dL (9.8-20.1); Calc. Creatinine Clearance 29 mL/min (70-130); Calcium 6.3 mg/dL (7.8-10.44); Carbon Dioxide 27 mmol/L (23-31); Chloride 108 mmol/L (98-107); Estimated GFR 48; Glucose 78 mg/dL (83-110); Magnesium 1.9 mg/dL (1.6-2.6); Potassium 4.6 mmol/L (3.5-5.1); Sodium 141 mmol/L (136-145)
[2022-03-30] MEDS: Polyethylene Glycol 3350 17 GM Packet PO SCH (09:37)
[2022-03-30] MEDS: levETIRAcetam 500 MG TAB PO SCH ×2 (09:38→20:38)
[2022-03-30] MEDS: Calcium Carbonate 500 MG TAB PO SCH ×2 (09:38→16:06)
[2022-03-30] MEDS: Potassium Chloride 20 MEQ TAB PO SCH ×2 (09:39→16:06)
[2022-03-30] MEDS: Senokot S 8.6-50 MG TAB PO SCH ×2 (09:39→20:38)
[2022-03-30] MEDS: Levothyroxine Sodium 88 MCG TAB PO SCH (09:39)
[2022-03-30] MEDS: NIFEdipine XL 30 MG TAB PO SCH (09:40)
[2022-03-30] MEDS: Carvedilol 6.25 MG TAB PO SCH ×2 (09:41→16:11)
[2022-03-31] MEDS ORDERED: Nitroglycerin 2% Ointment 1 INCH/1 GM Packet TOP SCH (05:00)
[2022-03-31 05:04] LABS: Anion Gap 13 mmol/L (10-20); BUN (Urea Nitrogen) 12 mg/dL (9.8-20.1); Calc. Creatinine Clearance 35 mL/min (70-130); Calcium 6.7 mg/dL (7.8-10.44); Carbon Dioxide 20 mmol/L (23-31); Chloride 114 mmol/L (98-107); Estimated GFR 60; Glucose 88 mg/dL (83-110); Magnesium 1.8 mg/dL (1.6-2.6); Potassium 4.6 mmol/L (3.5-5.1); Sodium 142 mmol/L (136-145)
[2022-03-31 05:09] LABS: #Eosinphils 0.2 10x3/uL (0.0-0.5); #Monocytes 0.6 10x3/uL (0.0-1.1); #Neutrophils 3.1 10x3/uL (1.5-8.4); %Basophils 0.2 % (0.0-2.0); %Eosinophils 2.8 % (0.0-6.0); %Lymphocytes 33.8 % (18.0-47.0); %Monocytes 10.2 % (0.0-10.0); %Neutrophils 52.8 % (40.0-75.0); Hemoglobin 8.7 g/dL (12.0-15.5); Mean Corpuscular Hemoglobin 28.2 pg (27.0-33.0); Mean Corpuscular Volume 83.1 fl (81.6-98.3); Mean Platelet Volume 12.7 fl (7.4-10.4); Platelet Count 97 10x3/uL (150-450); RBC Distribution Width 16.7 % (11.5-14.5); Red Blood Cell (RBC) Count 3.08 10x6/uL (3.90-5.03); White Blood Cell (WBC) Count 5.9 10x3/uL (3.5-10.5)
[2022-03-31] MEDS ORDERED: Magnesium 2 GM/50 ML(in water) 2 GM in Premix Bag 1 BAG IVPB SCH (08:00)
[2022-03-31] MEDS: Calcium Carbonate 500 MG TAB PO SCH ×2 (10:08→16:48)
[2022-03-31] MEDS: levETIRAcetam 500 MG TAB PO SCH ×2 (10:08→21:01)
[2022-03-31] MEDS: Polyethylene Glycol 3350 17 GM Packet PO SCH (10:08)
[2022-03-31] MEDS: Levothyroxine Sodium 88 MCG TAB PO SCH (10:08)
[2022-03-31] MEDS: Senokot S 8.6-50 MG TAB PO SCH ×2 (10:08→21:02)
[2022-03-31] MEDS: Potassium Chloride 20 MEQ TAB PO SCH (10:09)
[2022-03-31] MEDS: Carvedilol 6.25 MG TAB PO SCH ×2 (10:10→16:48)
[2022-03-31] MEDS: NIFEdipine XL 30 MG TAB PO SCH (10:10)
[2022-03-31] MEDS: Acetaminophen/Codeine 30-300mg Tablet PO PRN (21:01)
[2022-04-01 05:52] LABS: Anion Gap 10 mmol/L (10-20); BUN (Urea Nitrogen) 12 mg/dL (9.8-20.1); Calc. Creatinine Clearance 34 mL/min (70-130); Calcium 6.7 mg/dL (7.8-10.44); Carbon Dioxide 21 mmol/L (23-31); Chloride 114 mmol/L (98-107); Estimated GFR 59; Glucose 83 mg/dL (83-110); Magnesium 1.9 mg/dL (1.6-2.6); Potassium 4.4 mmol/L (3.5-5.1); Sodium 141 mmol/L (136-145)
[2022-04-01 06:40] LABS: #Eosinphils 0.2 10x3/uL (0.0-0.5); #Monocytes 0.5 10x3/uL (0.0-1.1); #Neutrophils 2.8 10x3/uL (1.5-8.4); %Basophils 0.4 % (0.0-2.0); %Eosinophils 2.9 % (0.0-6.0); %Lymphocytes 34.6 % (18.0-47.0); %Monocytes 9.6 % (0.0-10.0); %Neutrophils 52.3 % (40.0-75.0); Hemoglobin 8.6 g/dL (12.0-15.5); Mean Corpuscular HGB CONC 34.5 g/dL (32.0-36.0); Mean Corpuscular Hemoglobin 28.4 pg (27.0-33.0); Mean Corpuscular Volume 82.2 fl (81.6-98.3); Mean Platelet Volume 12.6 fl (7.4-10.4); Platelet Count 98 10x3/uL (150-450); RBC Distribution Width 16.7 % (11.5-14.5); Red Blood Cell (RBC) Count 3.03 10x6/uL (3.90-5.03); White Blood Cell (WBC) Count 5.4 10x3/uL (3.5-10.5)
[2022-04-01] MEDS: Carvedilol 6.25 MG TAB PO SCH ×2 (10:07→17:48)
[2022-04-01] MEDS: NIFEdipine XL 30 MG TAB PO SCH (10:08)
[2022-04-01] MEDS: levETIRAcetam 500 MG TAB PO SCH ×2 (10:08→20:40)
[2022-04-01] MEDS: Levothyroxine Sodium 88 MCG TAB PO SCH (10:09)
[2022-04-01] MEDS: Calcium Carbonate 500 MG TAB PO SCH ×2 (10:09→17:48)
[2022-04-01] MEDS: Senokot S 8.6-50 MG TAB PO SCH ×3 (10:11→20:40)
[2022-04-02 04:34] LABS: Platelet Count 106 10x3/uL (150-450)
[2022-04-02 04:35] LABS: #Eosinphils 0.2 10x3/uL (0.0-0.5); #Monocytes 0.5 10x3/uL (0.0-1.1); #Neutrophils 2.7 10x3/uL (1.5-8.4); %Basophils 0.4 % (0.0-2.0); %Eosinophils 3.2 % (0.0-6.0); %Lymphocytes 39.7 % (18.0-47.0); %Monocytes 8.5 % (0.0-10.0); Hemoglobin 8.6 g/dL (12.0-15.5); Mean Corpuscular HGB CONC 33.3 g/dL (32.0-36.0); Mean Corpuscular Hemoglobin 28.1 pg (27.0-33.0); Mean Corpuscular Volume 84.3 fl (81.6-98.3); Mean Platelet Volume 11.7 fl (7.4-10.4); RBC Distribution Width 17.1 % (11.5-14.5); Red Blood Cell (RBC) Count 3.06 10x6/uL (3.90-5.03); White Blood Cell (WBC) Count 5.6 10x3/uL (3.5-10.5)
[2022-04-02 04:36] LABS: Anion Gap 10 mmol/L (10-20); BUN (Urea Nitrogen) 12 mg/dL (9.8-20.1); Calc. Creatinine Clearance 34 mL/min (70-130); Calcium 6.8 mg/dL (7.8-10.44); Carbon Dioxide 22 mmol/L (23-31); Chloride 114 mmol/L (98-107); Estimated GFR 59; Glucose 81 mg/dL (83-110); Magnesium 1.9 mg/dL (1.6-2.6); Potassium 4.3 mmol/L (3.5-5.1); Sodium 142 mmol/L (136-145)
[2022-04-02] MEDS: Levothyroxine Sodium 88 MCG TAB PO SCH (06:51)
[2022-04-02] MEDS: Senokot S 8.6-50 MG TAB PO SCH ×2 (08:41→20:01)
[2022-04-02] MEDS: NIFEdipine XL 30 MG TAB PO SCH (08:41)
[2022-04-02] MEDS: levETIRAcetam 500 MG TAB PO SCH ×2 (08:41→20:01)
[2022-04-02] MEDS: Carvedilol 6.25 MG TAB PO SCH ×2 (08:41→16:55)
[2022-04-02] MEDS: Calcium Carbonate 500 MG TAB PO SCH ×2 (08:44→16:55)
[2022-04-02] MEDS: Acetaminophen/Codeine 30-300mg Tablet PO PRN (12:15)
[2022-04-03 06:48] LABS: Anion Gap 11 mmol/L (10-20); BUN (Urea Nitrogen) 12 mg/dL (9.8-20.1); Calc. Creatinine Clearance 32 mL/min (70-130); Calcium 6.7 mg/dL (7.8-10.44); Carbon Dioxide 23 mmol/L (23-31); Chloride 113 mmol/L (98-107); Estimated GFR 55; Glucose 74 mg/dL (83-110); Magnesium 1.8 mg/dL (1.6-2.6); Sodium 143 mmol/L (136-145)
[2022-04-03] MEDS: NIFEdipine XL 30 MG TAB PO SCH (09:51)
[2022-04-03] MEDS: levETIRAcetam 500 MG TAB PO SCH (09:51)
[2022-04-03] MEDS: Carvedilol 6.25 MG TAB PO SCH (09:51)
[2022-04-03] MEDS: Calcium Carbonate 500 MG TAB PO SCH (09:51)
[2022-04-03] MEDS: Senokot S 8.6-50 MG TAB PO SCH (09:52)
[2022-04-03] MEDS: Levothyroxine Sodium 88 MCG TAB PO SCH (10:11)
[2022-04-03 12:53] VITALS: TEMP 98.1
[2022-04-03 17:42] VITALS: BP 153/70
== END 2022-04-03 19:00 | disposition home or self-care (01) | DRG 682 ==
LOC: CSHERS 08:46 → INTOOBSV 10:55 → CSHTELE 10:55 → UNDOADMIN 13:59 → OBSVTOIN 03-29 11:15
PROVIDERS: ADMIT Internal Medicine Geriatric Medicine; ATTEND Family Medicine
DX: N17.9 Acute kidney failure, unspecified (principal); E43 Unspecified severe protein-calorie malnutrition; I69.354 Hemiplegia and hemiparesis following cerebral infarction affecting left non-dominant side; I24.8 Other forms of acute ischemic heart disease; E86.0 Dehydration; I25.10 Atherosclerotic heart disease of native coronary artery without angina pectoris; M19.90 Unspecified osteoarthritis, unspecified site; J45.909 Unspecified asthma, uncomplicated; E03.9 Hypothyroidism, unspecified; E78.5 Hyperlipidemia, unspecified; F41.9 Anxiety disorder, unspecified; F32.A Depression, unspecified; E87.6 Hypokalemia; I12.9 Hypertensive chronic kidney disease with stage 1 through stage 4 chronic kidney disease, or unspecified chronic kidney disease; N18.32 Chronic kidney disease, stage 3b; I35.0 Nonrheumatic aortic (valve) stenosis; I95.1 Orthostatic hypotension; Z20.822 Contact with and (suspected) exposure to COVID-19; Z88.0 Allergy status to penicillin; Z95.5 Presence of coronary angioplasty implant and graft; Z90.710 Acquired absence of both cervix and uterus; Z79.899 Other long term (current) drug therapy; Z68.20 Body mass index [BMI] 20.0-20.9, adult
CPT/HCPCS: 36415; 70450; 71045; 80048; 80053; 82553; 83735; 84443; 84484; 85025; 93005; 94760; 96360; 96361; 96374; 96376; G0378; J3475; J7120; U0002; U0003; U0005

== ENCOUNTER 2023-04-07 11:13 | Emergency (ER) | payer MEDICAID, OTHER ==
[2023-04-07] MEDS ORDERED: Furosemide 40 MG/4 ML VIAL ONE (12:04)
[2023-04-07] MEDS ORDERED: cloNIDine 0.1 MG TAB ONE (12:05)
== END 2023-04-07 14:04 | disposition home or self-care (01) ==
LOC: CSHERS 11:13
DX: B02.9 Zoster without complications (principal); I10 Essential (primary) hypertension; E03.9 Hypothyroidism, unspecified; J45.909 Unspecified asthma, uncomplicated; I25.10 Atherosclerotic heart disease of native coronary artery without angina pectoris; E78.5 Hyperlipidemia, unspecified
CPT/HCPCS: 96374; J1940